=== PATIENT | male | born 1965 | race Caucasian/White ===

== ENCOUNTER 2022-08-24 16:44 | Emergency (ER) | payer OTHER, SELFPAY ==
[2022-08-24] VITALS (9 sets, daily range): BP systolic 114–134; BP diastolic 77–86; PULSE 78–106; RESP 18; TEMP 36.6–37.1; O2SAT 94–98; BMI 23.8
--- NOTE | 2022-08-24 17:02 | CT_ITS ---
Patient: IHSAN OSBORN Facility:?[facility] Patient ID:?[id number] Site Patient [id number] Site :?[id number] Study:?CT-Head Angio w/ 95cc [id number]/13/2023 5:41:55 PM Ordering Physician:Alicia Connor Final Report: INDICATION: Acute stroke, word finding difficulty, headache, neck pain. TECHNIQUE: CTA head with contrast bolus tracking, 3D angiographic rendering using maximum intensity projection (MIP) and images permanently archived. FINDINGS: There is scattered intracranial atherosclerotic disease. There is normal opacification of the intracranial vasculature. There is no large vessel occlusion. No aneurysm is identified. IMPRESSION: No large vessel occlusion. Please note that all CT scans at this facility use dose modulation, iterative reconstruction, and/or weight-based dosing when appropriate to reduce radiation dose to as low as reasonably achievable. Dictated by Aries Cid MD @ 08/25/2022 3:58:54 PM Signed by:?Aries Cid MD @08/25/2022 3:58:54 PM (Electronic Signature)
--- NOTE | 2022-08-24 17:02 | CRLHL7_ITS ---
For Patients: As a result of the Century Cures Act, medical imaging exams and procedure reports are released immediately into your electronic medical record. You may view this report before your referring provider. If you have questions, please contact your health care provider. INDICATION: Acute stroke, word finding difficulty, headache, neck pain. TECHNIQUE: CTA neck with contrast bolus tracking, 3D angiographic rendering using maximum intensity projection (MIP) and images permanently archived. FINDINGS: There is no significant carotid artery stenosis or dissection. There is no significant vertebral artery stenosis or dissection. The soft tissues of the neck are within normal limits. The cervical spine is in normal alignment. Degenerative changes are noted in the cervical spine. Scarring and emphysematous changes are present in the lung apices, with pronounced scarring on the right. IMPRESSION: No significant carotid or vertebral artery stenosis or dissection. Please note that all CT scans at this facility use dose modulation, iterative reconstruction, and/or weight-based dosing when appropriate to reduce radiation dose to as low as reasonably achievable. Dictated by Aries Cid MD @ 08/25/2022 4:00:47 PM (Electronically Signed)
--- NOTE | 2022-08-24 17:14 | ED_ITS ---
HPI - General Adult General Date Seen: 08/24/22 Chief complaint: Neuro Symptoms/Altered Deficit Stated complaint: Possible stroke Time Seen by Provider: 08/24/22 16:49 Source: patient Mode of arrival: ambulatory Limitations: no limitations History of Present Illness HPI narrative: Patient is a 57-year-old male who presents for evaluation of some symptoms which have been ongoing for the past several days. He tells me that he drove here from [place] for his mother's birthday. He says he left a day and half latent so he drove straight through and was fairly fatigued. About an hour after arrival here in [place], he says that he felt like he was having some difficulty talking although it does not sound like he had aphasia or dysarthria, he says ?if you new me, you would know that I always have a lot to say, any feels like he has been less talkative than usual and may be does not have the ability to come up with retorts as quickly as usual. He also described difficulty typing, when I tried to Greta in on exactly what the problem was he said that at the end of the day when he was really tired he would just feel like he did not have the energy to text and he would wait until the next day, and then in the morning he would feel better and be able to type again. He does not seem to feel that he was having difficulty comprehending the letters or having difficulty with spelling or other generation of text. He denies headache. He says that his ex is a ?bit of a hypochondriac and encouraged him to come in. He denies fevers, chills, vomiting, chest pain, palpitations, lightheadedness, fainting, focal neurologic symptoms or other complaints. He denies medical history, he does note that he is adopted and does not know any family history. Social history is positive for tobacco use, some alcohol use although he says nothing crazy, no drug use. Related Data Home Medications Medication Instructions Recorded Confirmed albuterol 90 mcg/actuation aerosol mcg inhalation 08/24/22 inhaler lisinopril 20 mg tablet 20 mg PO DAILY 08/24/22 08/24/22 prednisone 5 mg tablet 5 mg PO BID 08/24/22 08/24/22 Previous Rx's Medication Instructions Recorded clopidogrel 75 mg tablet (Plavix) 75 mg PO DAILY #30 tabs 08/24/22 Allergies Allergy/AdvReac Type Severity Reaction Status Date / Time hayfever Allergy Unknown Uncoded 08/24/22 17:36 Review of Systems Status of ROS: Reports: 10 or more systems reviewed and unremarkable except as noted in History and below [facility] Social History Smoking Status: Unknown if ever smoked Do you use any of these nicotine containing products: None Second hand tobacco smoke exposure: No How often do you have a drink containing alcohol: never AUDIT-C Alcohol total score: 0 Non-prescribed substance use: denies use service: No Exam Narrative: Exam Narrative: Vital signs as noted above. In general, an alert, well-appearing patient. Head: Normocephalic, atraumatic. Eyes: Pupils are equal reactive. Extraocular movements are full. Conjunctivae are normal. ENT: Mucous membranes are moist. Throat is normal. Neck: Supple without lymphadenopathy. Heart: Regular rate and rhythm. No murmur or rub. Lungs: Clear bilaterally. No increased work of breathing, crackles or wheezes. Abdomen: Soft and nontender. No organomegaly. Extremities: Well perfused. No edema. No calf tenderness. Pulses intact. Neurologic: Patient is alert and oriented to person and place. Speech is fluent. Face is symmetric. Moves all extremities equally. Cerebellar function is intact by finger-nose testing. Affect: Normal. Skin: Warm and dry. Well perfused. Const: Vital Signs, click to edit/add: Vital Signs - 24 hr 08/24/22 17:00 08/24/22 18:05 08/24/22 18:07 Temperature 97.9 F Pulse Rate 94 Pulse Rate [Left P ulse Oximeter] 106 H Respiratory Rate 18 Blood Pressure [Le ft Upper Arm] 114/86 Pulse Oximetry 96 94 95 Oxygen Delivery Me thod Room Air 08/24/22 18:15 08/24/22 18:30 08/24/22 18:45 Temperature Pulse Rate 91 91 89 Pulse Rate [Left P ulse Oximeter] Respiratory Rate Blood Pressure [Le ft Upper Arm] Pulse Oximetry 95 96 96 Oxygen Delivery Me thod 08/24/22 19:00 08/24/22 19:15 08/24/22 19:50 Temperature 98.7 F Pulse Rate 85 86 Pulse Rate [Left P ulse Oximeter] 78 Respiratory Rate 18 Blood Pressure [Le ft Upper Arm] 134/77 Pulse Oximetry 96 97 98 Oxygen Delivery Me thod Room Air Course Course Hospital Course: Following initial evaluation I did order a CT of the head as well as a CT angiogram of the head and neck based on patient's stated complaints of some difficulty with speech. Certainly on exam I do not notice any difficulty with speech, but his ex- did show up later and said that she felt that something was wrong because he normally talks nonstop any just has not been talking as much. Labs are fairly unremarkable. White blood cell count normal at 8.8, hemoglobin 14.8, normal platelets. Electrolytes normal, blood sugar 132. LFTs are normal, CRP less than 0.5. Point of care troponin was 0. EKG showed sinus rhythm with a ventricular rate of 93 beats per minute. He has some diffuse ST elevation which I think is likely early repolarization based on absence of any cardiac symptoms, speech symptoms for several days and a negative troponin. CT of the head did show a subacute stroke in the left frontal lobe, consistent with Wernicke/Broca's region. I discussed his case with Dr. Mixon , [facility] neurologist. I had hoped to transfer the patient up to [place] so that he could be managed at a stroke center, but when I discussed this with the patient he actually refused transfer and in fact refused admission here 2. I have discussed with him the rationale for admission and further workup and the dangers in the acute. After a stroke in terms of a repeat stroke which could be significantly larger and threatening to life as well as significant disability. He declines all care. I did given Plavix 300 mg here, prescribed 75 mg daily for the next 30 days. I have stressed the importance of outpatient follow-up, he declines anything here, he says he wants to go back to [place] and see his doctor there. Discussed that I do not think it is safe for him to drive across the country several days after having had a stroke. He says that he will consider flying. His ex- is clearly very upset, I have made multiple times to dissuade the patient from leaving [place] but to no avail. Vital Signs Vital signs: Initial Vital Signs Temperature 97.9 F 08/24/22 17:00 Temperature Source Temporal Artery Scan 08/24/22 17:00 Pulse Rate 106 H 08/24/22 17:00 Pulse Rhythm Regular 08/24/22 17:00 Respiratory Rate 18 08/24/22 17:00 Blood Pressure 114/86 08/24/22 17:00 Blood Pressure Mean 95 08/24/22 17:00 Blood Pressure Position Sitting 08/24/22 17:00 Pulse Oximetry 96 08/24/22 17:00 Oxygen Delivery Method Room Air 08/24/22 17:00 Vital Signs Temperature 97.9 F 08/24/22 17:00 Pulse Rate 106 H 08/24/22 17:00 Respiratory Rate 18 08/24/22 17:00 Blood Pressure 114/86 08/24/22 17:00 Pulse Oximetry 96 08/24/22 17:00 Oxygen Delivery Method Room Air 08/24/22 17:00 Temperature 98.7 F 08/24/22 19:50 Pulse Rate 78 08/24/22 19:50 Respiratory Rate 18 08/24/22 19:50 Blood Pressure 134/77 08/24/22 19:50 Pulse Oximetry 98 08/24/22 19:50 Oxygen Delivery Method Room Air 08/24/22 19:50 Medical Decision Making Lab Data Labs: Lab Results 08/24/22 08/24/22 Range/Units 17:03 17:20 WBC 8.76 (4.50-11.00) K/uL RBC 5.33 (4.30-5.90) m/uL Hgb 14.8 (13.5-17.5) gm/dL Hct 45.5 (37.0-53.0) % MCV 85 (80-100) fL MCH 28 (26-34) pg MCHC 33 (32-36) gm/dL RDW Coeff of Guillermina 14.9 (11.5-15.5) % Plt Count 416 (140-440) K/uL Neut % (Auto) 76.5 H (42.0-72.0) % Lymph % (Auto) 14.8 L (20-44) % Fisher % (Auto) 7.5 (0.0-11.0) % Eos % (Auto) 0.8 (0.0-7.0) % Baso % (Auto) 0.1 (0.0-3.0) % Neut # (Auto) 6.70 (1.7-7.0) K/uL Lymph # (Auto) 1.30 (0.90-2.90) K/uL Fisher # (Auto) 0.70 (0.00-0.90) K/UL Eos # (Auto) 0.07 (0.00-0.50) K/uL Baso # (Auto) 0.01 (0.00-0.30) K/uL Sodium 137 (135-149) mmol/L Potassium 4.0 (3.6-5.1) mmol/L Chloride 103 (96-114) mmol/L Carbon Dioxide 23 (20-32) mmol/L BUN 29 (7-30) mg/dL Creatinine 1.2 (0.5-1.5) mg/dL Estimated Creat Clear 80.87 Estimated GFR 71 ml/min Glucose 132 H (60-115) mg/dL Calcium 9.4 (8.4-10.6) mg/dL Total Bilirubin 0.7 (0.1-1.5) mg/dL Direct Bilirubin 0.3 (0.0-0.5) mg/dL AST 26 (12-35) U/L ALT 22 (4-50) U/L Alkaline Phosphatase 57 (40-150) U/L C-Reactive Protein < 0.5 L (0.5-1.0) mg/dL Total Protein 8.2 (6.0-8.3) g/dL Albumin 4.8 (3.3-5.0) g/dL POC Troponin I 0.00 L (0.01-0.04) ng/ml Discharge Plan Discharge Clinical Impression: Cerebrovascular accident Patient Disposition: Left Against Medical Advice Condition: Stable Instructions: Ischemic Stroke (DC) Additional Instructions: Plavix as prescribed. Return immediately for any new symptoms. Outpatient follow-up recommended in the next couple of days for further workup. Prescriptions: New clopidogrel [Plavix] 75 mg tablet 75 mg PO DAILY Qty: 30 2RF No Action lisinopril 20 mg tablet 20 mg PO DAILY prednisone 5 mg tablet 5 mg PO BID albuterol 90 mcg/actuation aerosol inhalation Follow Up/Referrals: Provider,Not a Local [Primary Care Provider] - Stand Alone Forms: [employer] Info Instructions
--- NOTE | 2022-08-24 17:18 | CRLHL7_ITS ---
For Patients: As a result of the Cures Act, medical imaging exams and procedure reports are released immediately into your electronic medical record. You may view this report before your referring provider. If you have questions, please contact your health care provider. INDICATION: Word-finding difficulty TECHNIQUE: Non-contrast CT of the head is submitted. No comparisons. FINDINGS: There is a 31 x 10 millimeter ovoid region of decreased attenuation involving the anterior lateral left frontal lobe with loss of phillips-white differentiation compatible with a late acute nonhemorrhagic infarct. The remainder of the ventricles, sulci and gyri are of normal size, shape and contour. Midline structures are centrally located. No convincing evidence of intra- or extra-axial fluid collections. IMPRESSION: 1. Evidence of a nonhemorrhagic late acute infarct of the anterolateral left frontal lobe. 2. Preliminary results were discussed with ordering physician at 1810 hours. Dictated by Anthony Carnes MD @ 08/24/2022 6:12:52 PM Please note that all CT scans at this facility use dose modulation, iterative reconstruction, and/or weight-based dosing when appropriate to reduce radiation dose to as low as reasonably achievable. Dictated by: Anthony Carnes MD @ 08/24/2022 18:12:59 (Electronically Signed)
[2022-08-24] MEDS: ASPIRIN 81 MG TAB.CHEW 324 MG PO (17:20)
[2022-08-24 17:26] LABS: Basophils Absolute Auto 0.01 K/uL (0.00-0.30); Basophils Percent Auto 0.1 % (0.0-3.0); Eosinophils Absolute Auto 0.07 K/uL (0.00-0.50); Eosinophils Percent Auto 0.8 % (0.0-7.0); Hematocrit 45.5 % (37.0-53.0); Hemoglobin* 14.8 gm/dL (13.5-17.5); Immature Granulocytes Abs Auto 0.03 K/uL (0.00-0.30); Immature Granulocytes Pct Auto 0.3 %; Lymphocytes Percent Auto 14.8 % (20-44); Mean Corpuscular HGB Conc 33 gm/dL (32-36); Mean Corpuscular Hemoglobin 28 pg (26-34); Mean Corpuscular Volume 85 fL (80-100); Monocytes Percent Auto 7.5 % (0.0-11.0); Neutrophils Percent Auto 76.5 % (42.0-72.0); Platelet Count* 416 K/uL (140-440); RDW Coefficient of Variation % 14.9 % (11.5-15.5); Red Blood Count 5.33 m/uL (4.30-5.90); White Blood Count* 8.76 K/uL (4.50-11.00)
[2022-08-24 17:28] LABS: Slide Review Reflex No
[2022-08-24 17:38] LABS: Albumin* 4.8 g/dL (3.3-5.0); Chloride* 103 mmol/L (96-114)
[2022-08-24 17:39] LABS: Sodium* 137 mmol/L (135-149)
[2022-08-24 17:41] LABS: Creatinine* 1.2 mg/dL (0.5-1.5); Est. Creatinine Clearance* 80.87; Estimated Glomerular Filt Rate 71 ml/min
[2022-08-24 17:42] LABS: Alanine Aminotransferase* 22 U/L (4-50); Alkaline Phosphatase* 57 U/L (40-150); Aspartate Amino Transferase* 26 U/L (12-35); Bilirubin Direct* 0.3 mg/dL (0.0-0.5); Bilirubin Total* 0.7 mg/dL (0.1-1.5); Blood Urea Nitrogen* 29 mg/dL (7-30); Carbon Dioxide* 23 mmol/L (20-32); Glucose* 132 mg/dL (60-115); Total Protein* 8.2 g/dL (6.0-8.3)
[2022-08-24 17:43] LABS: Calcium* 9.4 mg/dL (8.4-10.6)
[2022-08-24 17:48] LABS: C Reactive Protein* < 0.5 mg/dL (0.5-1.0)
[2022-08-24] MEDS: CLOPIDOGREL 300 MG TABLET PO (20:07)
== END 2022-08-24 19:53 | disposition left against medical advice (07) ==
PROVIDERS: Emergency Provider Emergency Medicine
DX: I63.9 Cerebral infarction, unspecified (principal)
CPT/HCPCS: 36415; 70450; 70496; 70498; 80048; 80076; 84484; 85025; 86140; 93005; 94761; 99284; 99285; A9270; Q9967